=== PATIENT | male | born 1940 | race African-American/Black ===

== ENCOUNTER 2024-03-22 08:59 | Emergency (ER) | payer OTHER ==
[~2024-03-22] VITALS: Ht 180.3 cm; Wt 70.0 kg
[2024-03-22 09:02] VITALS: O2SAT 100
[2024-03-22] MEDS: LIDOCAINE 2% 6ML GLYDO MM NR (09:53)
[2024-03-22 11:02] LABS: CLARITY URINE CLEAR (CLEAR); COLOR URINE YELLOW (YELLOW); GLUCOSE URINE NEGATIVE (NEGATIVE); KETONES URINE NEGATIVE (NEGATIVE); LEUKOCYTE ESTERASE URINE NEGATIVE (NEGATIVE); NITRITE URINE NEGATIVE (NEGATIVE); OCCULT BLOOD URINE 2+ (NEGATIVE); PH URINE 6.5 (4.5-8.0); PROTEIN URINE NEGATIVE (NEGATIVE); SPECIFIC GRAVITY URINE 1.005 (1.005-1.030); UROBILINOGEN URINE 0.2 E.U./dL (0.2-1.0)
[2024-03-22 11:46] LABS: BACTERIA URINE NONE SEEN; RBC URINE 0-2 /hpf (0-2); SQUAMOUS EPITHELIAL CELL URINE NONE SEEN /lpf (RARE/1+); WBC URINE NONE SEEN /hpf (0-2); YEAST URINE NONE SEEN
[2024-03-22 12:28] VITALS: BP 148/71; PULSE 79; RESP 19; TEMP 36.5; O2SAT 99
== END 2024-03-22 12:30 | disposition home or self-care (01) ==
LOC: ER 08:59
DX: R33.9 Retention of urine, unspecified (principal); I10 Essential (primary) hypertension
CPT/HCPCS: 51702; 81003; 99284

== ENCOUNTER → 2024-06-11 | Emergency (ER) | payer OTHER ==
[~2024-06-11] VITALS: Ht 177.8 cm; Wt 97.7 kg
[2024-06-11 01:48] VITALS: O2SAT 100
[2024-06-11 01:53] VITALS: BP 109/63; PULSE 94; RESP 18; TEMP 36.8; O2SAT 100
== END | disposition home or self-care (01) ==
LOC: ER 01:19
DX: Z00.00 Encounter for general adult medical examination without abnormal findings (principal); Z53.21 Procedure and treatment not carried out due to patient leaving prior to being seen by health care provider